=== PATIENT | female | born 1950 | race American Indian/Alaskan Native ===

== ENCOUNTER 2016-08-11 08:47 | Emergency (ER) | payer OTHER ==
[2016-08-11 09:32] LABS: Basophils % (Auto) 0.5 % (0.0-1.8); Eosinophils % (Auto) 0.2 % (0.0-4.3); Hematocrit 40.1 % (30.3-42.9); Hemoglobin 13.2 gm/dl (10.1-14.3); Mean Corpuscular HGB Conc 33 % (30-34); Mean Corpuscular Hemoglobin 28 pg (28-32); Mean Corpuscular Volume 85 fl (79-97); Platelet Count 275 K/mm3 (140-440); Red Blood Count 4.73 M/mm3 (3.65-5.03); Red Cell Distribution Width 14.1 % (13.2-15.2); White Blood Count 6.3 K/mm3 (4.5-11.0)
[2016-08-11 09:41] LABS: Anion Gap 22 mmol/L; Blood Urea Nitrogen 6 mg/dL (7-17); Calcium 9.7 mg/dL (8.4-10.2); Carbon Dioxide 23 mmol/L (22-30); Chloride 97.4 mmol/L (98-107); Glucose 119 mg/dL (65-100); Potassium 3.9 mmol/L (3.6-5.0); Sodium 138 mmol/L (137-145)
--- NOTE | 2016-08-11 10:10 | XRay Report ---
ROUTINE CHEST, TWO VIEWS: HISTORY: Shortness of breath. The trachea, heart, mediastinal contour, lung duff and bony thorax are unremarkable. IMPRESSION: Unremarkable chest x-ray.
--- NOTE | 2016-08-11 13:03 | Emergency Department Report ---
HPI - General Chief Complaint: Dyspnea/Respdistress Time Seen by Provider: 08/11/16 12:27 - HPI HPI: Chief complaint: Patient complains of flulike symptoms since 9 days ago HPI: Patient states she began getting sick 9 days ago with some congestion and developed a productive cough with yellow sputum. Patient states she's also had a sore throat that has improved as well as intermittently having a subjective fever. Patient states on Monday and Monday she had several episodes of vomiting patient states she's had some watery diarrhea for the last several days. Patient also complains of body aches. Patient has been taking ibuprofen fever and congestion despite the fact she has a history of gastric ulcers requiring surgery. Patient states that on Monday she had a few minutes of a sharp chest pain and epigastric area radiating to her left chest that resolved and has not returned. There is no shortness of breath or diaphoresis with this chest pain. Patient does not have a history of diabetes or hypertension although she states the last time she was seen at [facility] they told her to follow- up for her blood pressure with her primary care doctor which she has not done. Mode of arrival: [private car] Source: [Patient] Began: 9 days ago Duration: see above Context: pt state she didn't receive a flu vaccine Quality: see above Severity: Currently 0 out of 10 Improved with: see above Worsened with: see aabove Associated signs and symptoms: see above ED Past Medical Hx - Past Medical History Previous Medical History?: Yes Hx Arthritis: Yes Additional medical history: Gastric ulcers, Left foot surgery - Surgical History Past Surgical History?: Yes Additional Surgical History: "surgery for gastric ulcers - Social History Smoking Status: Former Smoker Substance Use Type: Alcohol, Non Opiate Pain - Medications Home Medications: Home Medications Medication Instructions Recorded Confirmed Last Taken Type Azithromycin [Zithromax TAB] 500 mg PO QDAY #3 tablet 08/11/16 Unknown Rx amLODIPine [Norvasc] 5 mg PO DAILY #30 tab 08/11/16 Unknown Rx ED Review of Systems ROS: Stated complaint: FLU SYMPTOMS Other details as noted in HPI ROS Constitutional: No fever ENT: Nasal congestion Cardiovascular: chest pain Respiratory: See HPI GI: See HPI : No dysuria frequency or urgency, Skin: No rash Neuro: No focal weakness or numbness Psych: No depression Ehsan/lymph: No edema Physical Exam - Physical Exam Vital Signs: Vital Signs 08/11/16 08/11/16 08:57 12:41 Temperature 98.4 F Pulse Rate 93 H Respiratory 20 Rate Blood Pressure 190/93 O2 Sat by Pulse 100 98 Oximetry Physical Exam: GENERAL: The patient is well-developed well-nourished . HEENT: Normocephalic. Atraumatic. Extraocular motions are intact. Patient has moist mucous membranes. NECK: Supple. No meningitic signs are noted. There is no adenopathy noted. CHEST/LUNGS: Clear to auscultation. There is no respiratory distress noted. HEART/CARDIOVASCULAR: Regular. There is no tachycardia. There is no gallop rub or murmur. ABDOMEN: Abdomen is soft, nontender. Patient has normal bowel sounds. There is no abdominal distention. SKIN: There is no rash. There is no edema. There is no diaphoresis. NEURO: The patient is awake, alert, and oriented. The patient is cooperative. The patient has no focal neurologic deficits. The patient has normal speech. MUSCULOSKELETAL: There is no tenderness or deformity. There is no limitation range of motion. There is no evidence of acute injury. ED Course Vital Signs 08/11/16 08/11/16 08:57 12:41 Temperature 98.4 F Pulse Rate 93 H Respiratory 20 Rate Blood Pressure 190/93 O2 Sat by Pulse 100 98 Oximetry ED Medical Decision Making - Lab Data Result diagrams: 08/11/16 09:13 08/11/16 09:13 Laboratory Tests 08/11/16 09:13 Troponin T < 0.010 - EKG Data -: EKG Interpreted by Ak EKG shows normal: sinus rhythm Rate: normal (90) - EKG Data When compared to previous EKG there are: no significant change Interpretation: other (LAD) - Radiology Data Radiology results: report reviewed (chest x-ray within normal limits.) Critical care attestation.: If time is entered above; I have spent that time in minutes in the direct care of this critically ill patient, excluding procedure time. ED Disposition Clinical Impression: Bronchitis, Essential hypertension Disposition: DISCHARGED TO HOME OR SELFCARE Is pt being admited?: No Does the pt Need Aspirin: No Condition: Stable Instructions: Hypertension (ED), Acute Bronchitis (ED) Prescriptions: amLODIPine [Norvasc] 5 mg PO DAILY #30 tab Azithromycin [Zithromax TAB] 500 mg PO QDAY #3 tablet Referrals: PRIMARY CAREMD [Primary Care Provider] - 3-5 Days [facility] [Provider Group] - 2-3 Days MUSA OSHEA MD [Staff Physician] - 7-10 days (Dr. Oshea is the primary care doctor) Time of Disposition: 13:05
[2016-08-11 13:57] VITALS: BP 159/84
== END 2016-08-11 13:56 | disposition home or self-care (01) ==
LOC: ED 08:47
DX: J40 Bronchitis, not specified as acute or chronic (principal); I10 Essential (primary) hypertension; Z87.891 Personal history of nicotine dependence
CPT/HCPCS: 36415; 71020; 80048; 84484; 85025; 93005; 93010; 99284

== ENCOUNTER 2016-09-05 14:20 | Emergency (ER) | payer OTHER ==
[2016-09-05 16:01] LABS: Alanine Aminotransferase 15 units/L (7-56); Albumin 4.2 g/dL (3.9-5); Albumin/Globulin Ratio 1.4 %; Alkaline Phosphatase 79 units/L (35-129); Anion Gap 17 mmol/L; BUN/Creatinine Ratio 7.14; Bilirubin,Total 0.5 mg/dL (0.1-1.2); Blood Urea Nitrogen 5 mg/dL (7-17); Calcium 9.3 mg/dL (8.4-10.2); Carbon Dioxide 27 mmol/L (22-30); Chloride 98.6 mmol/L (98-107); Glucose 114 mg/dL (65-100); Lipase 25 units/L (13-60); Potassium 3.8 mmol/L (3.6-5.0); Sodium 139 mmol/L (137-145); Total Protein 7.2 g/dL (6.3-8.2)
[2016-09-05 16:13] LABS: Hematocrit 38.2 % (30.3-42.9); Hemoglobin 12.2 gm/dl (10.1-14.3); Mean Corpuscular HGB Conc 32 % (30-34); Mean Corpuscular Hemoglobin 27 pg (28-32); Mean Corpuscular Volume 85 fl (79-97); Platelet Count 325 K/mm3 (140-440); Red Blood Count 4.48 M/mm3 (3.65-5.03); Red Cell Distribution Width 14.6 % (13.2-15.2); White Blood Count 5.8 K/mm3 (4.5-11.0)
[2016-09-05 17:35] LABS: Mucus,Urine FEW /HPF; WBC,Urine < 1.0 /HPF (0.0-6.0)
[2016-09-05 17:37] LABS: Bilirubin,Urine NEG (Negative); Blood,Urine NEG (Negative); Ketones,Urine NEG (Negative); Leukocyte Esterase,Urine NEG (Negative); Nitrite,Urine NEG (Negative); Protein,Urine <15 mg/dL mg/dL (Negative); Urobilinogen,Urine < 2.0 mg/dL (<2.0)
[2016-09-05 17:52] LABS: Basophils % (Manual) 0 % (0.0-1.8); Blastocytes % (Manual) 0 %; Eosinophils % (Manual) 0 % (0.0-4.3)
[2016-09-05 17:53] LABS: Anisocytosis 1+; Diff Status Complete; Hypochromasia 1+; Ovalocytes Few; Platelet Estimate Consistent w Auto
[2016-09-05] MEDS ORDERED: BENTYL IM ONE (23:42)
[2016-09-05] MEDS ORDERED: ALUM-MAG HYDROX-SIMETH 200-200-20MG/5ML PO ONE (23:42)
[2016-09-05] MEDS ORDERED: PEPCID IV ONE (23:42)
[2016-09-05] MEDS ORDERED: NACL 0.9% 1000 ML 1,000 ML IV ONE (23:42)
--- NOTE | 2016-09-05 23:43 | Emergency Department Report ---
ED General Adult HPI - General Chief complaint: Abdominal Pain Stated complaint: ABD PAIN Time Seen by Provider: 09/05/16 23:27 Source: patient, RN notes reviewed, old records reviewed Mode of arrival: Ambulatory Limitations: No Limitations - History of Present Illness Initial comments: This is a 66-year-old female. She is previously unknown to me. Her primary care doctor is Dr. Smith. She has a follow-up with her primary care doctor on September 16. She has a past medical history of hypertension and ulcers. The patient presents to the ER complaining diffuse abdominal pain. Abdominal pain is achy. Does not radiate anywhere. Has some nausea, vomiting or diarrhea. No chest pain or shortness of breath. No irritative or obstructive urinary symptoms. Patient incidentally also describes having a problem with her heating system at home, thinks that she may have ingested/ accidentally breathed in natural gas or carbon monoxide. The patient informs me that she had her apartment checked out, it was found to have faulty pipes, she reported to her landlord's attention , and she reports that it was fixed. No hematemesis, no bright red blood per rectum, positive history of dark stool. Abdominal pain has been present for weeks to months. -: Gradual Location: abdomen Radiation: non-radiation Quality: aching Consistency: intermittent Improves with: none Worsens with: none Associated Symptoms: denies: confusion, chest pain, cough, diaphoresis, headaches, loss of appetite, malaise, nausea/vomiting, seizure, shortness of breath, syncope, weakness - Related Data Previous Rx's Medication Instructions Recorded Last Taken Type amLODIPine [Norvasc] 5 mg PO DAILY #30 tab 08/11/16 Unknown Rx Dicyclomine [Bentyl] 10 mg PO QID PRN #20 capsule 09/06/16 Unknown Rx Famotidine [Pepcid] 20 mg PO QDAY #30 tablet 09/06/16 Unknown Rx Allergies Allergy/AdvReac Type Severity Reaction Status Date / Time No Known Allergies Allergy Unverified 06/01/14 17:49 ED Review of Systems ROS: Stated complaint: ABD PAIN Other details as noted in HPI Constitutional: denies: fever Eyes: denies: vision change ENT: denies: epistaxis Respiratory: see HPI. denies: cough Cardiovascular: denies: chest pain Gastrointestinal: abdominal pain Genitourinary: as per HPI Musculoskeletal: as per HPI Skin: as per HPI Neurological: as per HPI Psychiatric: as per HPI Hematological/Lymphatic: as per HPI ED Past Medical Hx - Past Medical History Previous Medical History?: Yes Hx Hypertension: Yes Hx Arthritis: Yes Additional medical history: Gastric ulcers, Left foot surgery - Surgical History Past Surgical History?: Yes Additional Surgical History: "surgery for gastric ulcers - Social History Smoking Status: Never Smoker Substance Use Type: None - Medications Home Medications: Home Medications Medication Instructions Recorded Confirmed Last Taken Type amLODIPine [Norvasc] 5 mg PO DAILY #30 tab 08/11/16 09/05/16 Unknown Rx Dicyclomine [Bentyl] 10 mg PO QID PRN #20 capsule 09/06/16 Unknown Rx Famotidine [Pepcid] 20 mg PO QDAY #30 tablet 09/06/16 Unknown Rx ED Physical Exam - General Limitations: No Limitations General appearance: alert, in no apparent distress - Head Head exam: Present: atraumatic, normocephalic - Eye Eye exam: Present: normal appearance, EOMI. Absent: nystagmus - ENT ENT exam: Present: normal exam, normal orophraynx, mucous membranes moist, normal external ear exam - Neck Neck exam: Present: normal inspection, full ROM. Absent: tenderness, meningismus - Respiratory Respiratory exam: Present: normal lung sounds bilaterally. Absent: respiratory distress, wheezes, rales, rhonchi, stridor, decreased breath sounds - Cardiovascular Cardiovascular Exam: Present: regular rate, normal rhythm, normal heart sounds. Absent: bradycardia, tachycardia, irregular rhythm, systolic murmur, diastolic murmur, rubs, gallop - GI/Abdominal GI/Abdominal exam: Present: soft, normal bowel sounds. Absent: distended, tenderness, guarding, rebound, rigid, pulsatile mass - Rectal Rectal exam: Present: normal inspection, normal rectal tone, heme (-) stool, other (escorted by jean carlos bosch) - Extremities Exam Extremities exam: Present: normal inspection, full ROM, normal capillary refill. Absent: tenderness, pedal edema, joint swelling, calf tenderness - Back Exam Back exam: Present: normal inspection, full ROM. Absent: tenderness, CVA tenderness (R), CVA tenderness (L), muscle spasm, paraspinal tenderness, vertebral tenderness - Neurological Exam Neurological exam: Present: alert, oriented X3, normal gait, other (Extraocular movements intact. Tongue midline. No facial droop. Facial sensation intact to light touch in the V1, V2, V3 distribution bilaterally. 5 and 5 strength in 4 extremities.. Sensation is intact to light touch in 4 extremities.). Absent : motor sensory deficit - Psychiatric Psychiatric exam: Present: normal affect, normal mood - Skin Skin exam: Present: warm, dry, intact, normal color. Absent: rash ED Course Vital Signs 09/05/16 09/05/16 09/06/16 15:03 23:43 01:00 Temperature 98.6 F 98.0 F Pulse Rate 86 82 Respiratory 18 20 20 Rate Blood Pressure 159/85 Blood Pressure 149/96 [Left] O2 Sat by Pulse 99 98 99 Oximetry 09/06/16 03:42 Temperature 98.1 F Pulse Rate 78 Respiratory 20 Rate Blood Pressure Blood Pressure 138/90 [Left] O2 Sat by Pulse 99 Oximetry - Reevaluation(s) Reevaluation #1: 09/06/16 02:12 Differential diagnosis: GERD, gastritis, reflux, constipation, reticularis, diverticulitis, ileus, urinary tract infection, appendicitis, carbon monoxide/ natural gas toxicity, GI bleed Assessment and plan: 66-year-old female with multiple complaints. In terms of the patient's abdominal pain, she is afebrile, with reassuring vital signs, with no rebound, guarding or peritoneal signs. She has brown stool on rectal examination, that is guaiac negative. I however doubt acute surgical disease, or emergent pathology, but given her advanced age, nonspecific symptoms, we will obtain a CT scan to exclude subtle presentation of surgical disease. I will recommend that the patient follow up with outpatient fire department or gas company in regards to her questionable gas leak. carbon monoxide level at this time does not require transfer or further management. She felt improved after symptomatically therapy. Reevaluation #2: 09/06/16 02:15 sodium : 139 09/06/16 02:16 Reevaluation #3: 09/06/16 02:51 CT scan is negative. Patient feels improved. Her belly is soft on repeat examination. She will be discharged. She is going to follow up as directed. ED Medical Decision Making - Lab Data Result diagrams: 09/05/16 15:24 09/05/16 15:24 Labs 09/05/16 09/05/16 09/05/16 15:24 15:24 Unknown WBC 5.8 RBC 4.48 Hgb 12.2 Hct 38.2 MCV 85 MCH 27 L MCHC 32 RDW 14.6 Plt Count 325 Lymph % (Auto) Routing Clerk Add Manual Diff Complete Total Counted 100 Seg Neuts % (Manual) 33.0 L Band Neutrophils % 0 Lymphocytes % (Manual) 64.0 H Reactive Lymphs % (Man) 0 Monocytes % (Manual) 3.0 Eosinophils % (Manual) 0 Basophils % (Manual) 0 Metamyelocytes % 0 Myelocytes % 0 Promyelocytes % 0 Blast Cells % 0 Nucleated RBC % Not Reportable Seg Neutrophils # Man 1.9 Band Neutrophils # 0.0 Lymphocytes # (Manual) 3.7 Abs React Lymphs (Man) 0.0 Monocytes # (Manual) 0.2 Eosinophils # (Manual) 0.0 Basophils # (Manual) 0.0 Metamyelocytes # 0.0 Myelocytes # 0.0 Promyelocytes # 0.0 Blast Cells # 0.0 WBC Morphology Not Reportable Hypersegmented Neuts Not Reportable Hyposegmented Neuts Not Reportable Hypogranular Neuts Not Reportable Smudge Cells Not Reportable Toxic Granulation Not Reportable Toxic Vacuolation Not Reportable Dohle Bodies Not Reportable Pelger-Huet Anomaly Not Reportable Jed Rods Not Reportable Platelet Estimate Consistent w auto Clumped Platelets Not Reportable Plt Clumps, EDTA Not Reportable Large Platelets Not Reportable Giant Platelets Not Reportable Platelet Satelliting Not Reportable Plt Morphology Comment Not Reportable RBC Morphology Not Reportable Dimorphic RBCs Not Reportable Polychromasia Not Reportable Hypochromasia 1+ Poikilocytosis Not Reportable Anisocytosis 1+ Microcytosis Not Reportable Macrocytosis Not Reportable Spherocytes Not Reportable Pappenheimer Bodies Not Reportable Sickle Cells Not Reportable Target Cells Not Reportable Tear Drop Cells Not Reportable Ovalocytes Few Helmet Cells Not Reportable Gallagher-Copperhill Bodies Not Reportable Charlotte Rings Not Reportable Wilton Cells Not Reportable Bite Cells Not Reportable Crenated Cell Not Reportable Elliptocytes Not Reportable Acanthocytes (Spur) Not Reportable Rouleaux Not Reportable Hemoglobin C Crystals Not Reportable Schistocytes Not Reportable Malaria parasites Not Reportable Glenn Bodies Not Reportable Hem Pathologist Commnt No Carboxyhemoglobin Potassium 3.8 Chloride 98.6 Carbon Dioxide 27 Anion Gap 17 BUN 5 L Creatinine 0.7 Estimated GFR > 60 BUN/Creatinine Ratio 7.14 Glucose 114 H Calcium 9.3 Total Bilirubin 0.5 AST 18 ALT 15 Alkaline Phosphatase 79 Total Protein 7.2 Albumin 4.2 Albumin/Globulin Ratio 1.4 Lipase 25 Urine Color Yellow Urine Turbidity Clear Urine pH 6.0 Ur Specific North 1.012 Urine Protein <15 mg/dl Urine Glucose (UA) Neg Urine Ketones Neg Urine Blood Neg Urine Nitrite Neg Ur Reducing Substances Not Reportable Urine Bilirubin Neg Urine Ictotest Not Reportable Urine Urobilinogen < 2.0 Ur Leukocyte Esterase Neg Urine WBC (Auto) < 1.0 Urine RBC (Auto) 2.0 U Epithel Cells (Auto) 3.0 Urine Mucus Few 09/06/16 00:07 WBC RBC Hgb Hct MCV MCH MCHC RDW Plt Count Lymph % (Auto) Add Manual Diff Total Counted Seg Neuts % (Manual) Band Neutrophils % Lymphocytes % (Manual) Reactive Lymphs % (Man) Monocytes % (Manual) Eosinophils % (Manual) Basophils % (Manual) Metamyelocytes % Myelocytes % Promyelocytes % Blast Cells % Nucleated RBC % Seg Neutrophils # Man Band Neutrophils # Lymphocytes # (Manual) Abs React Lymphs (Man) Monocytes # (Manual) Eosinophils # (Manual) Basophils # (Manual) Metamyelocytes # Myelocytes # Promyelocytes # Blast Cells # WBC Morphology Hypersegmented Neuts Hyposegmented Neuts Hypogranular Neuts Smudge Cells Toxic Granulation Toxic Vacuolation Dohle Bodies Pelger-Huet Anomaly Jed Rods Platelet Estimate Clumped Platelets Plt Clumps, EDTA Large Platelets Giant Platelets Platelet Satelliting Plt Morphology Comment RBC Morphology Dimorphic RBCs Polychromasia Hypochromasia Poikilocytosis Anisocytosis Microcytosis Macrocytosis Spherocytes Pappenheimer Bodies Sickle Cells Target Cells Tear Drop Cells Ovalocytes Helmet Cells Gallagher-Copperhill Bodies Charlotte Rings Ash Cells Bite Cells Crenated Cell Elliptocytes Acanthocytes (Spur) Rouleaux Hemoglobin C Crystals Schistocytes Malaria parasites Glenn Bodies Hem Pathologist Commnt Carboxyhemoglobin 2.2 Potassium Chloride Carbon Dioxide Anion Gap BUN Creatinine Estimated GFR BUN/Creatinine Ratio Glucose Calcium Total Bilirubin AST ALT Alkaline Phosphatase Total Protein Albumin Albumin/Globulin Ratio Lipase Urine Color Urine Turbidity Urine pH Ur Specific North Urine Protein Urine Glucose (UA) Urine Ketones Urine Blood Urine Nitrite Ur Reducing Substances Urine Bilirubin Urine Ictotest Urine Urobilinogen Ur Leukocyte Esterase Urine WBC (Auto) Urine RBC (Auto) U Epithel Cells (Auto) Urine Mucus Vital Signs 09/05/16 09/05/16 15:03 23:43 Temperature 98.6 F 98.0 F Pulse Rate 86 82 Respiratory 18 20 Rate Blood Pressure 159/85 Blood Pressure 149/96 [Left] O2 Sat by Pulse 99 98 Oximetry - Radiology Data Radiology results: report reviewed, image reviewed CT scan of the abdomen and pelvis with IV contrast is negative for acute disease. Critical care attestation.: If time is entered above; I have spent that time in minutes in the direct care of this critically ill patient, excluding procedure time. ED Disposition Clinical Impression: Abdominal pain Disposition: DISCHARGED TO HOME OR SELFCARE Is pt being admited?: No Does the pt Need Aspirin: No Condition: Stable Instructions: Abdominal Pain (ED) Additional Instructions: Avoid consumption of alcohol, heavy and spicy foods, Motrin, ibuprofen, Naprosyn , Aleve, aspirin. Follow up with her primary care doctor or gastroenterology specialist within the next week. Please follow up with the fire department or [employer] to make certain that the gas leak has been incorrectly fixed in your apartment. Do this as soon as possible. Return to the ER right away with new pain, worsened pain, migration of pain, fevers or chills, intractable nausea or vomiting, inability to tolerate liquid feeds. Prescriptions: Dicyclomine [Bentyl] 10 mg PO QID PRN #20 capsule PRN Reason: Pain Famotidine [Pepcid] 20 mg PO QDAY #30 tablet Referrals: TRAM AUSTIN MD [Primary Care Provider] - 3-5 Days NICOLA MARTINEZ MD [Staff Physician] - 3-5 Days
[2016-09-06] MEDS ORDERED: NACL ONE (00:57)
--- NOTE | 2016-09-06 02:22 | Cat Scan Report ---
FINAL REPORT PROCEDURE: CT ABDOMEN PELVIS W CON TECHNIQUE: Computerized axial tomography of the abdomen and pelvis was performed after the IV injection of iodinated nonionic contrast. HISTORY: abd pain COMPARISON: No prior studies are available for comparison. FINDINGS: Visualized lower thorax: No significant abnormality. Liver: Normal size and attenuation. Spleen: Normal size and attenuation. Gallbladder and biliary system: Normal. Pancreas: Normal. Adrenals: Normal. Kidneys: Normal. GI tract: The stomach is normal. A small hiatal hernia is identified. The small bowel has a normal caliber. No obstruction, ileus or enteritis. The cecum and colon are normal. The appendix region is normal.. Lymph nodes and mesentery: Normal. Vasculature: Normal. Bladder: Normal. Reproductive organs: The uterus is absent. No pelvic masses.. Peritoneum: No free fluid. Musculoskeletal structures: No significant abnormality. Other: None. IMPRESSION: No evidence of intestinal or urinary tract obstruction. No ileus or enteritis.
[2016-09-06 03:43] VITALS: BP 138/90
== END 2016-09-06 03:44 | disposition home or self-care (01) ==
LOC: ED 14:20
DX: R10.9 Unspecified abdominal pain (principal); I10 Essential (primary) hypertension; M19.90 Unspecified osteoarthritis, unspecified site
CPT/HCPCS: 36415; 74177; 80053; 81001; 82271; 82375; 83690; 85007; 85025; 96361; 96372; 96374; 99284; J0500; J7030; Q9967

== ENCOUNTER 2017-01-04 11:24 | Outpatient (CLI) | payer OTHER ==
--- NOTE | 2017-01-04 15:19 | Mammography Report ---
BILATERAL DIGITAL SCREENING MAMMOGRAM with CAD: 01/04/17 11:24:00 CLINICAL: Routine screening. COMPARISON:None available. She doesn't remember where she last had a mammogram. FINDINGS: The breasts are heterogeneously dense, which may obscures small masses. A round partially circumscribed right upper outer asymmetry requires additional imaging.No architectural distortion or suspicious calcifications.The left breast is negative. IMPRESSION: Right asymmetry requiring further workup. BI-RADS CATEGORY: 0 -- Additional Imaging Evaluation Required RECOMMENDATION: Recall for right spot magnification views and right breast ultrasound. ACR BI-RADS MAMMOGRAPHIC CODES: 0 = Needs additional imaging evaluation; 1 = Negative; 2 = Benign; 3 = Probably benign; 4 = Suspicious; 5 = Malignant; 6 = Known biopsy-proven malignancy COMMENT: 1. Dense breast tissue, i.e., adenosis, fibrocystic changes, etc., may obscure an underlying neoplasm. 2. Approximately 10% of cancers are not detected with mammography. 3. A negative mammography report should not delay biopsy if a clinically suspicious mass is present. COMMENT: Patient follow-up letters are generated via our [employer] application.
== END 2017-01-04 11:25 | disposition home or self-care (01) ==
LOC: MAMMO 11:24
PROVIDERS: ATTEND Internal Medicine
DX: Z12.31 Encounter for screening mammogram for malignant neoplasm of breast (principal); I10 Essential (primary) hypertension
CPT/HCPCS: 77067; G0202

== ENCOUNTER 2017-02-07 10:05 | Outpatient (CLI) | payer OTHER ==
--- NOTE | 2017-02-07 11:29 | Ultrasound Report ---
Bilateral diagnostic mammogram Spot compression magnification of focal asymmetry outer posterior right breast and sonographic examination of outer right breast: Findings: Bilateral mammogram there is benign calcification right breast with asymmetric density in the adjacent region. Benign densities noted in the upper right breast. Left breast appears unremarkable. On spot magnification view effacement noted of the asymmetric density outer posterior right breast. Additional asymmetric density measuring 6 mm in diameter is identified on spot magnification view also is seen on the CC view. No microcalcifications seen. Sonographic examination reveals a cyst measuring 0.7 x 0.5 x 0.8 cm at 10:00 position 9 cm from nipple. This may or may not correspond to the density seen on mammogram. Impression: The density seen on mammogram may be concordant or discordant with sonographic findings however appear to be benign. Six-month followup with mammogram and if necessary sonogram recommended. BI-RADS CATEGORY: 3 = Probably benign ACR BI-RADS MAMMOGRAPHIC CODES: 0 = Needs additional imaging evaluation; 1 = Negative; 2 = Benign; 3 = Probably benign; 4 = Suspicious; 5 = Malignant; 6 = Known biopsy-proven malignancy COMMENT: 1. Dense breast tissue, i.e., adenosis, fibrocystic changes, etc., may obscure an underlying neoplasm. 2. Approximately 10% of cancers are not detected with mammography. 3. A negative mammography report should not delay biopsy if a clinically suspicious mass is present. COMMENT: Patient follow-up letters are generated in [employer]
== END 2017-02-07 10:06 | disposition home or self-care (01) ==
LOC: MAMMO 10:05
PROVIDERS: ATTEND Internal Medicine
DX: N60.01 Solitary cyst of right breast (principal); R92.1 Mammographic calcification found on diagnostic imaging of breast; N64.89 Other specified disorders of breast; I10 Essential (primary) hypertension
CPT/HCPCS: 76642; G0204; 77066

== ENCOUNTER 2017-04-06 10:52 | Day surgery (SDC) | payer OTHER ==
[2017-04-06] MEDS ORDERED: NACL 0.9% 1000 ML 1,000 ML ONE (11:23)
[2017-04-06] MEDS ORDERED: XYLOCAINE MPF 2% ONE (11:30)
[2017-04-06] MEDS ORDERED: DIPRIVAN 10 MG/ML IV ONE ×2 (13:06)
--- NOTE | 2017-04-06 14:17 | Anesthesia Day of Surgery ---
Anesthesia Day of Surgery - Day of Surgery Patient Examined: Yes Patient H&P Reviewed: Yes Patient is NPO: Yes
--- NOTE | 2017-04-06 14:17 | Anesthesia Consultation ---
Anesthesia Consult and Med Hx Date of service: 04/06/17 - Airway Anesthetic Teeth Evaluation: Poor (many missing, front lower teeth poor dentition and very loose, patient aware of possible dislodgement), Chipped - Pre-Operative Health Status ASA Pre-Surgery Classification: ASA2 Proposed Anesthetic Plan: MAC - Pulmonary Hx Smoking: No Hx Sleep Apnea: No (LOW RISK) - Cardiovascular System Hx Hypertension: Yes - Central Nervous System Hx Psychiatric Problems: No - Gastrointestinal Hx Ulcer: Yes (2012) Hx Gastroesophageal Reflux Disease: Yes - Endocrine Hx Renal Disease: No Hx Insulin Dependent Diabetes: No - Hematic Hx Anemia: Yes (W/PEPTIC ULCER 2013,"RESOLVED") - Other Systems Hx Alcohol Use: No Hx Substance Use: No Hx Cancer: No Hx Obesity: No
[2017-04-06] MEDS ORDERED: WATER FOR IRRIG STERILE IR ONE (14:22)
--- NOTE | 2017-04-06 15:25 | Post Anesthesia Evaluation ---
- Post Anesthesia Evaluation Patient Participated: Yes Airway Patent: Yes Stable Respiratory Function: Yes Nausea/Vomiting: No Temp > 96.8F: Yes Pain Manageable: Yes Adequeate Hydration: Yes Anesthesia Complications: No Block Receding Appropriately: Not Applicable Patient on Ventilator: No
--- NOTE | 2017-04-06 15:33 | Operative Report ---
Operative Report Operative Report: Date of procedure: 04/06/2017 Procedure: Colonoscopy with hot biopsy polypectomy and polyp ablation Attending physician: Shaka Morley MD Dress Finisher: Shaka Morley MD Indication: Patient is a 66-year-old female who presents for colorectal cancer screening. Colonoscopy is done to evaluate patient so that treatment may be directed based on the findings. Consent: Informed consent was obtained after advising the patient and family regarding nature of this procedure, its indications, potential benefits as well as possible complications including but not limited to bleeding perforation and adverse reaction to medication, infection as well as other cardiopulmonary complications. An informed written and verbal consent was then obtained after due opportunity was provided for questions and answers. Monitoring: Patient was monitored continuously with pulse oximetry and electrocardiographic recordings as well as blood pressure recordings. Vital signs remained stable throughout this procedure with no untoward events. Preoperative assessment: Patient was assessed immediately prior to this procedure for capacity to tolerate monitored anesthesia care and moderate sedation as well as general anesthesia. Patient's ASA classification is 2, Mallampati class is 2, Hyomental distance is 3. Instrument: Ringadocn video colonoscope Medications: Propofol, given intravenously in divided doses. For details please refer to anesthesia records. Description of procedure: Patient was placed in the left lateral decubitus position after achieving sedation, a digital rectal examination was performed following which the colonoscope was introduced into the anal verge and advanced to the cecum which was identified by the cecal valve, the appendiceal orifice, as well as by the cecal strap and direct transillumination. The colonoscope was subsequently withdrawn with careful inspection of all mucosal surfaces. Patient tolerated this procedure well and was subsequently taken to the recovery room. The following findings were noted. Findings: Patient had diminutive flat polyp in the rectum, which was ablated. There was another sessile polyp approximately 3-4 mm, which was removed with biopsy polypectomy. There is another diminutive flat polyp in the transverse colon that was completely ablated. The rest of the colon was normal. On the retroflex view at the anal verge, patient had internal hemorrhoids. Impression: Diminutive rectal polyp status post ablation. Diminutive rectal polyp status post hot biopsy polypectomy. Transverse colon polyp status post ablation. Internal hemorrhoids. Plan: Follow pathology report. High-fiber diet. Repeat colonoscopy in 5 years.
--- NOTE | 2017-04-06 15:34 | Discharge Summary ---
Short Stay Discharge Plan Activity: advance as tolerated Weight Bearing Status: Weight Bear as Tolerated Diet: regular Follow up with: TRAM AUSTIN MD [Primary Care Provider] - 7 Days
[2017-04-06 15:50] VITALS: BP 138/80
== END 2017-04-06 10:53 | disposition home or self-care (01) ==
LOC: GIO 10:52
PROVIDERS: ATTEND Internal Medicine Gastroenterology
DX: Z12.11 Encounter for screening for malignant neoplasm of colon (principal); I10 Essential (primary) hypertension; K21.9 Gastro-esophageal reflux disease without esophagitis; K62.1 Rectal polyp; K63.5 Polyp of colon; K64.8 Other hemorrhoids
CPT/HCPCS: 45384; 45388; 88305; J2704; J7030

== ENCOUNTER 2017-08-31 10:30 | Outpatient (CLI) | payer OTHER ==
--- NOTE | 2017-08-31 14:02 | Mammography Report ---
Right mammogram: Short-term followup for asymmetry seen on prior exam in January 2017. The asymmetry seen only in the CC projection is no longer identified. The breast pattern is otherwise unchanged and unremarkable. Impression: Resolved right breast asymmetry. Recommendation: Resume mammogram screening. BI-RADS CATEGORY: 1 = Negative ACR BI-RADS MAMMOGRAPHIC CODES: 0 = Needs additional imaging evaluation; 1 = Negative; 2 = Benign; 3 = Probably benign; 4 = Suspicious; 5 = Malignant; 6 = Known biopsy-proven malignancy COMMENT: 1. Dense breast tissue, i.e., adenosis, fibrocystic changes, etc., may obscure an underlying neoplasm. 2. Approximately 10% of cancers are not detected with mammography. 3. A negative mammography report should not delay biopsy if a clinically suspicious mass is present.
== END 2017-08-31 10:31 | disposition home or self-care (01) ==
LOC: MAMMO 10:30
PROVIDERS: ATTEND Internal Medicine
DX: R92.8 Other abnormal and inconclusive findings on diagnostic imaging of breast (principal)

== ENCOUNTER 2022-02-12 00:08 | Emergency (ER) | payer SELFPAY ==
[2022-02-12 01:16] LABS: Basophils % (Auto) 0.5 % (0.0-1.8); Eosinophils % (Auto) 0.1 % (0.0-4.3); Hematocrit 39.6 % (30.3-42.9); Hemoglobin 13.1 gm/dl (10.1-14.3); Lymphocytes # (Auto) 2.4 K/mm3 (1.2-5.4); Lymphocytes % (Auto) 35.5 % (13.4-35.0); Mean Corpuscular HGB Conc 33 % (30-34); Mean Corpuscular Volume 87 fl (79-97); Monocytes # (Auto) 0.3 K/mm3 (0.0-0.8); Monocytes % (Auto) 5.1 % (0.0-7.3); Platelet Count 316 K/mm3 (140-440); Red Blood Count 4.53 M/mm3 (3.65-5.03); Red Cell Distribution Width 14.3 % (13.2-15.2)
[2022-02-12 01:33] LABS: Alanine Aminotransferase 31 units/L (7-56); BUN/Creatinine Ratio 11; Blood Urea Nitrogen 11 mg/dL (7-17); Calcium 10.6 mg/dL (8.4-10.2); Hemolysis Index 1
--- NOTE | 2022-02-12 02:16 | Emergency Department Report ---
ED General Adult HPI - General Chief complaint: GI Bleed Stated complaint: STOMACH PAINS/BLACK STOOL Time Seen by Provider: 02/12/22 02:15 Source: patient, family, RN notes reviewed, old records reviewed Mode of arrival: Ambulatory Limitations: No Limitations - History of Present Illness Initial comments: The patient was evaluated in the emergency department for symptoms described in the history of present illness. He/she was evaluated in the context of the global COVID-19 pandemic, which necessitated consideration that the patient might be at risk for infection with the virus that causes COVID-19. Institutional protocols and algorithms that pertain to the evaluation of patients at risk for COVID-19 are in a state of rapid change based on info rmation released by regulatory bodies including the CDC and federal and state organizations. These policies and algorithms were followed during the patient's care in the emergency department. Please note that these policies, procedures and recommendations changed on a rapid basis. The patient is a 71-year-old female who presents to the department today with a complaint of diffuse abdominal cramping. It has been present for months. She denies fever, neck pain, chest pain, shortness of breath. She has some black stool. She reports having had a colonoscopy 4 to 5 years ago which she thinks is unremarkable. She also believes that she has a history of ulcers. She denies a history of abdominal surgeries to myself. She denies urinary symptoms. The patient reports that she does not take blood thinning medications. She reports that she was previously on Zantac and discontinued the medication -: month(s) Location: abdomen Severity scale (0 -10): 10 Quality: aching Consistency: intermittent Improves with: none Worsens with: none - Related Data Previous Rx's Medication Instructions Recorded Last Taken Type amLODIPine [Norvasc] 5 mg PO DAILY #30 tab 08/11/16 04/05/17 13:00 Rx Dicyclomine [Bentyl] 10 mg PO QID PRN #20 capsule 09/06/16 04/03/17 13:00 Rx Famotidine [Pepcid] 20 mg PO QDAY #30 tablet 09/06/16 04/05/17 13:00 Rx Acetaminophen [Non-Aspirin Extra 500 mg PO Q6HR PRN #30 tablet 02/12/22 Unknown Rx Strength] Ondansetron [Zofran Odt] 4 mg PO Q8HR PRN #20 tab.rapdis 02/12/22 Unknown Rx Allergies Allergy/AdvReac Type Severity Reaction Status Date / Time No Known Allergies Allergy Unverified 06/01/14 17:49 ED Review of Systems ROS: Stated complaint: STOMACH PAINS/BLACK STOOL Other details as noted in HPI Constitutional: denies: fever Eyes: denies: eye discharge ENT: denies: epistaxis Respiratory: denies: cough Cardiovascular: denies: chest pain Gastrointestinal: abdominal pain. denies: hematemesis, hematochezia Genitourinary: denies: dysuria Neurological: denies: weakness Hematological/Lymphatic: denies: easy bleeding ED Past Medical Hx - Past Medical History Previous Medical History?: Yes Hx Hypertension: Yes Hx GERD: Yes (GERD) Hx Renal Disease: No Hx Arthritis: Yes Hx HIV: No Additional medical history: Gastric ulcers, Left foot surgery - Surgical History Past Surgical History?: Yes Additional Surgical History: "surgery for gastric ulcers - Social History Smoking Status: Never Smoker - Medications Home Medications: Home Medications Medication Instructions Recorded Confirmed Last Taken Type amLODIPine [Norvasc] 5 mg PO DAILY #30 tab 08/11/16 04/06/17 04/05/17 13:00 Rx Dicyclomine [Bentyl] 10 mg PO QID PRN #20 capsule 09/06/16 04/06/17 04/03/17 13:00 Rx Famotidine [Pepcid] 20 mg PO QDAY #30 tablet 09/06/16 04/06/17 04/05/17 13:00 Rx Acetaminophen [Non-Aspirin Extra 500 mg PO Q6HR PRN #30 tablet 02/12/22 Unknown Rx Strength] Ondansetron [Zofran Odt] 4 mg PO Q8HR PRN #20 tab.rapdis 02/12/22 Unknown Rx ED Physical Exam - General Limitations: No Limitations General appearance: alert, in no apparent distress - Head Head exam: Present: atraumatic, normocephalic - Eye Eye exam: Present: normal appearance, EOMI. Absent: nystagmus - ENT ENT exam: Present: normal exam, normal orophraynx, mucous membranes moist, normal external ear exam - Neck Neck exam: Present: normal inspection, full ROM. Absent: tenderness, meningismus - Respiratory Respiratory exam: Present: normal lung sounds bilaterally. Absent: respiratory distress, wheezes, rales, rhonchi, stridor, decreased breath sounds - Cardiovascular Cardiovascular Exam: Present: regular rate, normal rhythm, normal heart sounds. Absent: bradycardia, tachycardia, irregular rhythm, systolic murmur, diastolic murmur, rubs, gallop - GI/Abdominal GI/Abdominal exam: Present: soft. Absent: distended, tenderness, guarding, rebound, rigid, pulsatile mass - Rectal Rectal exam: Present: normal inspection, normal rectal tone, other (Patient provides consent for digital rectal examination. Provides consent for family member to be in the room during examination. Chaperoned by nurse Gela Foss). Absent: black stool, bloody stool, fecal impaction, hemorrhoids, tenderness - Extremities Exam Extremities exam: Present: normal inspection, full ROM, other (2+ pulses noted in the bilateral upper and lower extremities. There is no palpable cord. negative Homans sign. Muscular compartments are soft. The pelvis is stable.). Absent: pedal edema, calf tenderness - Back Exam Back exam: Present: normal inspection. Absent: tenderness, CVA tenderness (R), CVA tenderness (L), paraspinal tenderness, vertebral tenderness - Neurological Exam Neurological exam: Present: alert, oriented X3, other (No facial droop. Tongue midline. Extraocular movements intact bilaterally. Facial sensation intact to light touch in V1, V2, V3 distribution bilaterally. 5 and a 5 strength in 4 extremities. Sensation intact to light touch in 4 extremities.). Absent: motor sensory deficit - Psychiatric Psychiatric exam: Present: normal affect, normal mood - Skin Skin exam: Present: warm, dry, intact, normal color. Absent: rash ED Course Vital Signs 02/12/22 02/12/22 02/12/22 00:26 01:42 03:00 Temperature 98.4 F 98.0 F Pulse Rate 75 66 56 L Respiratory 18 16 18 Rate Blood Pressure 166/81 140/76 169/99 [Right] O2 Sat by Pulse 100 100 97 Oximetry - Reevaluation(s) Reevaluation #1: 02/12/22 03:04 Differential diagnosis, including but not limited to: GERD, gastritis, hiatal hernia, colitis, diverticulitis, constipation, IBS, obstruction, functional abdominal pain Inflammatory bowel disease Assessment and plan: 71-year-old female with months of nonspecific abdominal pain. I saw this patient for nonspecific abdominal pain 5 years ago, and she had an unremarkable work-up in the emergency room at that time. Her physical exam is benign and unremarkable, and laboratory studies thus far are unremarkable. Her rectal examination does not show black stool or blood. Laboratory studies nonactionable. I doubt that the patient has an emergent abdominal condition. However, given advanced age, we will obtain a CT scan of the abdomen pelvis. We will treat her supportively and symptomatically. I discussed this plan of care with the patient and her sister at the bedside, who is a nurse at a local hospital. They articulated understanding. All questions answered. 02/12/22 04:32 Patient reassessed. She is in no acute distress. Urinalysis not suggestive of UTI. CT scan abdomen pelvis not suggestive of any emergent findings as anticipated. Extensive repeat discussion had with patient and sister. We discussed diet and lifestyle modifications, nonemergent CT scan findings, recommendations for outpatient follow-up. Return precautions are reviewed. All questions answered. Patient endorses readiness for discharge and improvement in her symptoms ED Medical Decision Making - Lab Data Result diagrams: 02/12/22 00:44 02/12/22 00:44 Vital Signs 02/12/22 02/12/22 02/12/22 00:26 01:42 03:00 Temperature 98.4 F 98.0 F Pulse Rate 75 66 56 L Respiratory 18 16 18 Rate Blood Pressure 166/81 140/76 169/99 [Right] O2 Sat by Pulse 100 100 97 Oximetry Lab Results 02/12/22 02/12/22 Range/Units 00:44 00:44 WBC 6.8 (4.5-11.0) K/mm3 RBC 4.53 (3.65-5.03) M/mm3 Hgb 13.1 (10.1-14.3) gm/dl Hct 39.6 (30.3-42.9) % MCV 87 (79-97) fl MCH 29 (28-32) pg MCHC 33 (30-34) % RDW 14.3 (13.2-15.2) % Plt Count 316 (140-440) K/mm3 Lymph % (Auto) 35.5 H (13.4-35.0) % Nash % (Auto) 5.1 (0.0-7.3) % Eos % (Auto) 0.1 (0.0-4.3) % Baso % (Auto) 0.5 (0.0-1.8) % Lymph # (Auto) 2.4 (1.2-5.4) K/mm3 Nash # (Auto) 0.3 (0.0-0.8) K/mm3 Eos # (Auto) 0.0 (0.0-0.4) K/mm3 Baso # (Auto) 0.0 (0.0-0.1) K/mm3 Seg Neutrophils % 58.8 (40.0-70.0) % Seg Neutrophils # 4.0 (1.8-7.7) K/mm3 Sodium 143 (137-145) mmol/L Potassium 3.5 L (3.6-5.0) mmol/L Chloride 102.6 (98-107) mmol/L Carbon Dioxide 23 (22-30) mmol/L Anion Gap 21 mmol/L BUN 11 (7-17) mg/dL Creatinine 1.0 (0.6-1.2) mg/dL Estimated GFR > 60 ml/min BUN/Creatinine Ratio 11 % Glucose 156 H (65-100) mg/dL Calcium 10.6 H (8.4-10.2) mg/dL Total Bilirubin 0.80 (0.1-1.2) mg/dL AST 31 (5-40) units/L ALT 31 (7-56) units/L Alkaline Phosphatase 83 (35-129) units/L Total Protein 7.4 (6.3-8.2) g/dL Albumin 5.0 (3.9-5) g/dL Albumin/Globulin Ratio 2.1 % - EKG Data -: EKG Interpreted by Vt EKG shows normal: sinus rhythm Rate: normal - EKG Data 02/12/22 03:03 The EKG is interpreted at 02: 43 Sinus rhythm, with a rate of 62 bpm. Left axis deviation, borderline left anterior fascicular block. There is motion artifact. The QTC is 4 6 3 ms. There is left ventricular hypertrophy. This is an abnormal EKG. This is not a STEMI - Radiology Data Radiology results: pending, report reviewed, image reviewed CT ABDOMEN AND PELVIS WITH IV CONTRAST INDICATION: Acute on chronic abdominal pain.. COMPARISON: None available. TECHNIQUE: Axial CT images were obtained through the abdomen and pelvis after 100 mL Omnipaque [address] scans at this location are performed using CT dose reduction for ALARA by means of automated exposure control. FINDINGS -- ABDOMEN: Lung Bases: No acute abnormality. Liver: Normal. Gallbladder: Normal. Bile Ducts: Normal. Pancreas: Normal. Spleen: Normal. Adrenals: Normal. Right Kidney and Proximal Ureter: Normal. Left Kidney and Proximal Ureter: Normal. Stomach and Bowel: Some thickening of the distal gastric mucosa along the body and antrum. Some small bowel mucosal prominence.. Lymph Nodes: No significant adenopathy. Aorta: No significant abnormality. IVC: Normal. Additional Findings: None. FINDINGS -- PELVIS: Urinary Bladder and Distal Ureters: Normal. Reproductive Organs: No acute abnormality. Bowel: No obstruction. There is prominence of the small bowel mucosa with some enhancement especially distally. Free Fluid: None. Lymph Nodes: Several prominent lymph nodes are noted along the right groin.. Additional Findings: None. Skeletal System: No acute abnormality. IMPRESSION: Mild gastroenteritis. Signer Name: Ady Rojo MD Signed: 02/12/2022 2:37 AM Critical care attestation.: If time is entered above; I have spent that time in minutes in the direct care of this critically ill patient, excluding procedure time. ED Disposition Clinical Impression: Nonspecific abdominal pain Disposition: 01 HOME / SELF CARE / HOMELESS Is pt being admited?: No Does the pt Need Aspirin: No Condition: Good Additional Instructions: Avoid consumption of Motrin, ibuprofen, Naprosyn, Aleve, alcohol, tobacco, heavy and spicy foods. May take [id number] Tylenol, Pepcid, or Protonix as needed for pain. May take the prescribed nausea medications as needed and directed. Do not take metformin medication for the next 2 days, if patient takes this medication Stool sample was negative for blood. Laboratory studies were unremarkable. CT scan abdomen pelvis showed no acute or emergent findings that would require emergent surgical intervention, admission to the hospital, or antibiotics. Please follow-up with your outpatient primary care doctor or GI physician within the next week to 2 weeks. Please return to the emergency room right away with new pain, worsened pain, migration of pain, projectile vomiting, change in mental status, confusion, inability tolerate liquid feeds, new, worsened or different symptoms not present on the initial emergency room evaluation Prescriptions: Acetaminophen [Non-Aspirin Extra Strength] 500 mg PO Q6HR PRN #30 tablet PRN Reason: Pain , Severe (7-10) Ondansetron [Zofran Odt] 4 mg PO Q8HR PRN #20 tab.rapdis PRN Reason: Nausea Referrals: FABY CRAIG MD [Staff Physician] - 3-5 Days [facility] [Provider Group] - 3-5 Days Forms: Accompanied Note, Work/School Release Form(ED)
[2022-02-12] MEDS ORDERED: SODIUM CHLORIDE 0.9% 1000 ML 500 ML IV ONE (02:31)
[2022-02-12] MEDS ORDERED: ONDANSETRON 4 MG/2 ML INJ IV ONE (02:31)
[2022-02-12] MEDS ORDERED: PANTOPRAZOLE 40 MG INJ IV ONE (02:31)
[2022-02-12] MEDS ORDERED: MORPHINE 4 MG/1 ML INJ IV ONE (02:31)
--- NOTE | 2022-02-12 03:41 | Cat Scan Report ---
CT ABDOMEN AND PELVIS WITH IV CONTRAST INDICATION: Acute on chronic abdominal pain.. COMPARISON: None available. TECHNIQUE: Axial CT images were obtained through the abdomen and pelvis after 100 mL Omnipaque [address] scans at this location are performed using CT dose reduction for ALARA by means of automated e xposure control. FINDINGS -- ABDOMEN: Lung Bases: No acute abnormality. Liver: Normal. Gallbladder: Normal. Bile Ducts: Normal. Pancreas: Normal. Spleen: Normal. Adrenals: Normal. Right Kidney and Proximal Ureter: Normal. Left Kidney and Proximal Ureter: Normal. Stomach and Bowel: Some thickening of the distal gastric mucosa along the body and antrum. Some small bowel mucosal prominence.. Lymph Nodes: No significant adenopathy. Aorta: No significant abnormality. IVC: Normal. Additional Findings: None. FINDINGS -- PELVIS: Urinary Bladder and Distal Ureters: Normal. Reproductive Organs: No acute abnormality. Bowel: No obstruction. There is prominence of the small bowel mucosa with some enhancement especially distally. Free Fluid: None. Lymph Nodes: Several prominent lymph nodes are noted along the right groin.. Additional Findings: None. Skeletal System: No acute abnormality. IMPRESSION: Mild gastroenteritis. Signer Name: Ady Rojo MD Signed: 02/12/2022 3:37 AM Workstation Name: [email or web address] [employer]
[2022-02-12 03:55] LABS: Bacteria,Urine 1+ /HPF (Negative); Mucus,Urine 3+ /HPF
[2022-02-12 04:20] LABS: Color,Urine Yellow (Yellow)
[2022-02-12 04:53] VITALS: BP 142/70
--- NOTE | 2022-02-12 09:21 | Electrocardiograph Report ---
[facility] Test Date: 2022-02-12 Test Time: 02:43:05 Pat Name: CLAUDIA ALCAZAR Department: Room: Gender: F Staff Accountant: : [id number] Requested By: KARIME BETANCUR Order Number: [id number] Reading MD: Alonso Morrison Measurements Intervals [place] Rate: 62 P: 36 IA: 118 QRS: -29 QRSD: 82 T: 14 QT: 456 QTc: 463 Interpretive Statements Sinus rhythm No previous ECG available for comparison Electronically Signed On 02-12-2022 9:21:53 EDT by Alonso Morrison
== END 2022-02-12 04:52 | disposition home or self-care (01) ==
LOC: ED 00:08
DX: R10.84 Generalized abdominal pain (principal); I10 Essential (primary) hypertension; K21.9 Gastro-esophageal reflux disease without esophagitis; M19.90 Unspecified osteoarthritis, unspecified site; Z98.890 Other specified postprocedural states; Z79.899 Other long term (current) drug therapy
CPT/HCPCS: 36415; 74177; 80053; 81001; 82270; 85025; 93005; 96374; 96375; 99284; C9113; J2270; J2405; J7030; Q9967; 96361